=== PATIENT | female | born 1995 | race Two or more races ===

== ENCOUNTER 2020-11-09 08:30 | Outpatient (CLI) | payer OTHER | END 2020-11-09 08:35 | disposition home or self-care (01) | LOC: PPH VACUNA 08:30 | DX: Z23 Encounter for immunization (principal) ==

== ENCOUNTER 2021-01-09 18:42 | Emergency (ER) | payer OTHER ==
[~2021-01-09] VITALS: Ht 162.6 cm; Wt 73.0 kg
== END 2021-01-09 22:59 | disposition home or self-care (01) ==
LOC: ER 18:42
DX: O20.0 Threatened abortion (principal)

== ENCOUNTER 2021-08-20 13:45 | Inpatient (IN) | payer OTHER ==
[~2021-08-20] VITALS: Ht 162.6 cm; Wt 92.1 kg
[2021-08-22] MEDS ORDERED: FOLIC ACID0.8 M1 PO (10:46)
[2021-08-22] MEDS ORDERED: PRENATABS RX T1 EACH PO (10:46)
== END 2021-08-24 12:48 | disposition home or self-care (01) | DRG 788 ==
LOC: OB/GYN 08-22 10:33 → LDR 08-22 10:33 → OB/GYN 08-22 19:20 → SURH 08-28 13:45
PROVIDERS: ADMIT Obstetrics & Gynecology; ATTEND Obstetrics & Gynecology
PROC: 4A1HXCZ Monitoring of Products of Conception, Cardiac Rate, External Approach (ICD-10-PCS; 2021-08-22)
PROC: 10D00Z1 Extraction of Products of Conception, Low, Open Approach (ICD-10-PCS; principal; 2021-08-22 17:00)
DX: O62.1 Secondary uterine inertia (principal); O33.8 Maternal care for disproportion of other origin; Z3A.39 39 weeks gestation of pregnancy; Z37.0 Single live birth; Z20.822 Contact with and (suspected) exposure to COVID-19

== ENCOUNTER 2024-11-01 13:15 | Outpatient (CLI) | payer OTHER ==
[~2024-11-01 13:15] MED LIST: FOLIC ACID0.8 M1 PO; PRENATABS RX T1 EACH PO
== END 2024-11-01 13:16 | disposition home or self-care (01) ==
LOC: PRENATAL 13:15
PROVIDERS: ATTEND Obstetrics & Gynecology Maternal & Fetal Medicine
DX: O36.80X0 Pregnancy with inconclusive fetal viability, not applicable or unspecified (principal); Z36.82 Encounter for antenatal screening for nuchal translucency; O34.219 Maternal care for unspecified type scar from previous cesarean delivery; Z14.8 Genetic carrier of other disease; Z3A.13 13 weeks gestation of pregnancy

== ENCOUNTER 2024-12-21 08:09 | Outpatient (CLI) | payer OTHER | END 2024-12-21 08:10 | disposition home or self-care (01) | LOC: PRENATAL 08:09 | PROVIDERS: ATTEND Obstetrics & Gynecology Maternal & Fetal Medicine | DX: O44.00 Complete placenta previa NOS or without hemorrhage, unspecified trimester (principal); O34.219 Maternal care for unspecified type scar from previous cesarean delivery; Z3A.19 19 weeks gestation of pregnancy ==

== ENCOUNTER 2025-03-16 09:29 | Outpatient (CLI) | payer OTHER | END 2025-03-16 09:32 | disposition home or self-care (01) | LOC: PRENATAL 09:29 | PROVIDERS: ATTEND Obstetrics & Gynecology Maternal & Fetal Medicine | DX: O26.849 Uterine size-date discrepancy, unspecified trimester (principal); O36.8130 Decreased fetal movements, third trimester, not applicable or unspecified; O34.219 Maternal care for unspecified type scar from previous cesarean delivery; Z3A.32 32 weeks gestation of pregnancy ==

== ENCOUNTER 2025-04-27 09:15 | Inpatient (IN) | payer OTHER ==
[~2025-04-27] VITALS: Ht 162.6 cm; Wt 3.2 kg
[2025-04-27 11:59] LABS: URINE APPEARANCE Clear; URINE BILIRRUBIN Small (NEGATIVE); URINE BLOOD Negative; URINE COLOR Dark Yellow; URINE GLUCOSE Negative (NEGATIVE); URINE KETONE Trace (NEGATIVE); URINE LEUKOCYTE Moderate; URINE NITRATE Negative; URINE PROTEIN Trace (NEGATIVE); URINE UROBILINOGEN 1.0 E.U./dl
[2025-04-27 12:04] LABS: URINE BACTERIA 997.0 uL (0.0-1933); URINE EPITHELIAL CELLS 20.2 uL (0.0-38.8); URINE RBC 3.2 uL (0.0-20.8); URINE WBC 24.6 uL (0.0-23.2)
[2025-04-27 12:20] LABS: URINE CAST 0.14 uL (0.0-1.40)
[2025-04-27 12:28] LABS: BASO % 0.3 % (0.1-1.2); EOS # 0.09 (0.04-0.54); EOS % 0.9 % (0.7-7.0); LYMPH # 1.19 (1.18-3.74); LYMPH % 12.4 % (19.3-53.1); MEAN PLATELET VOLUME 11.60 fl (9.4-12.4); MONO # 0.75 (0.24-0.82); MONO % 7.8 % (4.7-12.5); NEUT # 7.33 (1.56-6.13); NEUT % 76.7 % (34.0-71.1); RED CELL DISTRIBUTION WIDTH 14.7 % (11.6-14.4)
[2025-04-27 12:49] LABS: INR 0.96
[2025-05-03 09:00] VITALS: BP 123/66
[2025-05-03 09:21] VITALS: BP 123/66
[2025-05-03] MEDS ORDERED: OXYTOCIN 10 UNITS/ML VIAL ONE (09:44)
[2025-05-03] MEDS ORDERED: RINGERS SOLUTION,LACTATED 1,000 ML IV SCH (09:45)
[2025-05-03] MEDS ORDERED: ERYTHROMYCIN BASE OPHT 1GM EACH TUBE OP ONE (09:45)
[2025-05-03] MEDS ORDERED: MORPHINE SULFATE 4 MG/ML CARTRIDGE IV SCH (13:00)
[2025-05-03 14:00] VITALS: BP 111/76
[2025-05-03 16:36] VITALS: BP 116/62
[2025-05-03 18:20] LABS: BASO % 0.2 % (0.1-1.2); EOS # 0.02 (0.04-0.54); EOS % 0.1 % (0.7-7.0); LYMPH # 0.70 (1.18-3.74); LYMPH % 5.1 % (19.3-53.1); MEAN PLATELET VOLUME 12.00 fl (9.4-12.4); MONO # 0.61 (0.24-0.82); MONO % 4.5 % (4.7-12.5); NEUT # 12.23 (1.56-6.13); NEUT % 89.4 % (34.0-71.1); RED CELL DISTRIBUTION WIDTH 14.7 % (11.6-14.4)
[2025-05-03] MEDS ORDERED: KETOROLAC TROMETHAMINE 60 MG VIAL IM ONE (20:00)
[2025-05-04 02:08] VITALS: BP 113/72
[2025-05-04] MEDS ORDERED: OxyCODONE HCL 5 MG TABLET (ROXICODONE) PO SCH (05:00)
[2025-05-04 07:55] VITALS: BP 112/79
[2025-05-04] MEDS ORDERED: DOCUSATE SODIUM 100MG CAP PO SCH (09:00)
[2025-05-04] MEDS ORDERED: SIMETHICONE 125 MG CAPSULE PO SCH (09:00)
[2025-05-04] MEDS ORDERED: PNV,CALCIUM 72/IRON/FOLIC ACID 1 TAB TABLET PO SCH (09:00)
[2025-05-04 13:00] VITALS: BP 101/66
[2025-05-04 16:00] VITALS: BP 108/67
[2025-05-05 02:09] VITALS: BP 107/64
[2025-05-05 08:00] VITALS: BP 122/64
[2025-05-05 17:36] VITALS: BP 123/73
[2025-05-06 01:24] VITALS: BP 128/61
[2025-05-06 04:18] VITALS: BP 114/60
[2025-05-06 08:00] VITALS: BP 102/62
== END 2025-05-06 15:04 | disposition home or self-care (01) | DRG 788 ==
LOC: LDR 05-03 09:13 → O/R 05-03 10:08 → OB/GYN 05-03 13:29 → LDR 05-03 17:15 → OB/GYN 05-06 15:04
PROVIDERS: ADMIT Obstetrics & Gynecology; ATTEND Obstetrics & Gynecology
PROC: 4A1HXCZ Monitoring of Products of Conception, Cardiac Rate, External Approach (ICD-10-PCS; 2025-05-03)
PROC: 10D00Z1 Extraction of Products of Conception, Low, Open Approach (ICD-10-PCS; principal; 2025-05-03 17:15)
DX: O34.211 Maternal care for low transverse scar from previous cesarean delivery (principal); Z3A.39 39 weeks gestation of pregnancy; Z37.0 Single live birth